=== PATIENT | male | born 1950 | race Caucasian/White ===

== ENCOUNTER 2016-11-11 13:02 | Inpatient (IN) | payer OTHER, SELFPAY ==
[~2016-11-11] VITALS: Ht 180.3 cm; Wt 134.7 kg
[2016-11-11 14:22] LABS: HEMOGLOBIN 15.1 gm/dl (14.0-17.5); RED BLOOD COUNT 4.87 M/UL (4.20-5.50)
[2016-11-11 14:40] LABS: BUN/CREATININE RATIO 18 (0-10)
[2016-11-11 21:33] LABS: BUN/CREATININE RATIO 19 (0-10)
[2016-11-11] MEDS ORDERED: ZESTORETIC 20-1 EAC1 PO (23:33)
[2016-11-11] MEDS ORDERED: NEURONTIN 400400 MG PO (23:34)
[2016-11-11] MEDS ORDERED: ZYRTEC10 MG PO (23:34)
[2016-11-12 06:28] LABS: HEMOGLOBIN 15.3 gm/dl (14.0-17.5); RED BLOOD COUNT 4.79 M/UL (4.20-5.50); WHITE BLOOD COUNT 11.7 K/UL (4.5-11.0)
[2016-11-12 06:57] LABS: BUN/CREATININE RATIO 26 (0-10)
[2016-11-13 05:22] LABS: RED BLOOD COUNT 4.87 M/UL (4.20-5.50); WHITE BLOOD COUNT 14.6 K/UL (4.5-11.0)
[2016-11-13 05:44] LABS: BUN/CREATININE RATIO 30 (0-10)
[2016-11-14 04:29] LABS: HEMOGLOBIN 13.8 gm/dl (14.0-17.5); RED BLOOD COUNT 4.52 M/UL (4.20-5.50); WHITE BLOOD COUNT 12.7 K/UL (4.5-11.0)
[2016-11-14 04:52] LABS: BUN/CREATININE RATIO 28 (0-10)
--- NOTE | 2016-11-15 00:15 | NUR ---
11/14/2013 6455 LENGTHY DISCUSSION ABOUT ELECTRICAL CONDUCTION ABNORMALITY OF A FIB, THE RESULTS OF A FIB ON THE BODY, THE MECHANISM AND REASON FOR THE MALACHI TO BE DONE, THE ABLATION TO BE DONE. PT VERBALIZES "BETTER UNDERSTANDING OF WHAT IS GOING TO HAPPEN TOMORROW"
[2016-11-16] MEDS ORDERED: ELIQUIS5 MG PO (11:04)
[2016-11-16] MEDS ORDERED: HYDROCHLOROTHIA25 MG PO (11:06)
[2016-11-16] MEDS ORDERED: LISINOPRIL10 MG PO (11:07)
[2016-11-16] MEDS ORDERED: LOPRESSOR 25 MG25 MG PO (11:09)
== END 2016-11-16 12:26 | disposition home or self-care (01) | DRG 274 ==
LOC: ER1 13:02 → ZEROF 16:56 → PROG CARE 16:56 → M/S 22:41 → PROG CARE 11-12 01:56
PROVIDERS: Emergency Medicine; ADMIT Internal Medicine
PROC: 02583ZZ Destruction of Conduction Mechanism, Percutaneous Approach (ICD-10-PCS; principal; 2016-11-15)
PROC: 02K83ZZ Map Conduction Mechanism, Percutaneous Approach (ICD-10-PCS; 2016-11-15)
PROC: 4A023FZ Measurement of Cardiac Rhythm, Percutaneous Approach (ICD-10-PCS; 2016-11-15)
PROC: 4A0234Z Measurement of Cardiac Electrical Activity, Percutaneous Approach (ICD-10-PCS; 2016-11-15)
PROC: B246ZZ4 Ultrasonography of Right and Left Heart, Transesophageal (ICD-10-PCS; 2016-11-15)
DX: I48.0 Paroxysmal atrial fibrillation (principal); I50.22 Chronic systolic (congestive) heart failure; Z68.41 Body mass index [BMI] 40.0-44.9, adult; I48.92 Unspecified atrial flutter; I11.0 Hypertensive heart disease with heart failure; E66.01 Morbid (severe) obesity due to excess calories; J44.9 Chronic obstructive pulmonary disease, unspecified; I42.9 Cardiomyopathy, unspecified; I27.2 Other secondary pulmonary hypertension; I08.1 Rheumatic disorders of both mitral and tricuspid valves; I45.9 Conduction disorder, unspecified; D72.829 Elevated white blood cell count, unspecified; G89.29 Other chronic pain; M54.5 Low back pain; Z91.14 Patient's other noncompliance with medication regimen; Z79.899 Other long term (current) drug therapy; Z82.49 Family history of ischemic heart disease and other diseases of the circulatory system
CPT/HCPCS: ECHO; 36415; 71010; 80048; 80053; 80061; 82550; 82553; 82803; 83735; 83874; 83880; 84100; 84132; 84439; 84443; 84481; 84484; 85025; 85027; 85610; 85730; 87040; 93005; 93306; 93312; 93320; 93609; 93622; 94640; 94664; 96361; 96365; 96375; 99291; C1730; C1766; J1200; J1644; J1650; J1940; J1956; J2250; J2405; J2930; J3010; J7030; J7040; Q9963

== ENCOUNTER → 2016-11-24 | Outpatient (CLI) | payer OTHER ==
[~2016-11-24] MED LIST: ELIQUIS5 MG PO; HYDROCHLOROTHIA25 MG PO; LISINOPRIL10 MG PO; LOPRESSOR 25 MG25 MG PO; NEURONTIN 400400 MG PO; ZESTORETIC 20-1 EAC1 PO; ZYRTEC10 MG PO
== END ==
LOC: NM 09:00
DX: R07.9 Chest pain, unspecified (principal)

== ENCOUNTER 2021-10-04 11:51 | Inpatient (IN) | payer OTHER ==
[~2021-10-04] VITALS: Ht 180.3 cm; Wt 136.1 kg
[2021-10-04 13:03] LABS: HEMOGLOBIN 15.3 gm/dl (14.0-17.5); RED BLOOD COUNT 5.13 M/UL (4.20-5.50); WHITE BLOOD COUNT 17.8 K/UL (4.5-11.0)
[2021-10-04] MEDS ORDERED: GABAPENTIN400 MG PO (17:16)
[2021-10-04] MEDS ORDERED: HYDROCHLOROTHIA25 MG PO (17:16)
[2021-10-04] MEDS ORDERED: ZOFRAN 4 MG TAB4 MG PO (17:16)
[2021-10-04] MEDS ORDERED: NAPROXEN500 MG PO (17:17)
[2021-10-04] MEDS ORDERED: MUPIROCIN22 GM TOP (17:17)
[2021-10-04] MEDS ORDERED: LISINOPRIL10 MG PO (17:17)
[2021-10-04] MEDS ORDERED: MONTELUKAST SOD10 MG PO (17:18)
[2021-10-04] MEDS ORDERED: TRAZODONE HCL50 MG PO (17:18)
[2021-10-04] MEDS ORDERED: LINZESS145 MCG PO (17:18)
[2021-10-04] MEDS ORDERED: LEVOCETIRIZINE D5 MG PO (17:18)
[2021-10-04] MEDS ORDERED: PROAIR HFA8.5 GM INH (17:19)
[2021-10-04] MEDS ORDERED: METOPROLOL TART25 MG PO (17:19)
[2021-10-05 03:37] LABS: HEMOGLOBIN 13.9 gm/dl (14.0-17.5); RED BLOOD COUNT 4.72 M/UL (4.20-5.50); WHITE BLOOD COUNT 16.9 K/UL (4.5-11.0)
[2021-10-05 03:42] LABS: BUN/CREATININE RATIO 29 (0-10)
--- NOTE | 2021-10-05 17:13 | NUR ---
PATIENT HAD 3 MRI VIEWS ORDERED. PATIENT REFUSED TO LAY FLAT STATED HE COULDN'T ESPECIALLY ON A HARD SURFACE. HOTEL CASINO FLOORPERSON ALSO STATED HE DIDN'T THINK THE PATIENT WOULD FIT IN THE MRI MACHINE. HOSPITALIST NOTIFIED WELL ORTHO PA. ORTHO PA SUGGESTED HOSPITALIST CONTACT DR. MERIDA IF HE WAS INTERESTED IN PERSUING FURTHER FOR IMAGING OR TREATMENT SUGGESTIONS. WILL CONTINUE TO MONITOR.
[2021-10-06 16:34] LABS: HEMOGLOBIN 12.6 gm/dl (14.0-17.5); RED BLOOD COUNT 4.43 M/UL (4.20-5.50)
[2021-10-06 16:35] LABS: WHITE BLOOD COUNT 10.6 K/UL (4.5-11.0)
[2021-10-06 17:09] LABS: BUN/CREATININE RATIO 15 (0-10)
[2021-10-07 03:37] LABS: HEMOGLOBIN 12.8 gm/dl (14.0-17.5); RED BLOOD COUNT 4.49 M/UL (4.20-5.50); WHITE BLOOD COUNT 11.2 K/UL (4.5-11.0)
[2021-10-07 04:33] LABS: BUN/CREATININE RATIO 14 (0-10)
[2021-10-08 03:13] LABS: HEMOGLOBIN 13.5 gm/dl (14.0-17.5); RED BLOOD COUNT 4.76 M/UL (4.20-5.50); WHITE BLOOD COUNT 10.2 K/UL (4.5-11.0)
[2021-10-08 03:34] LABS: BUN/CREATININE RATIO 15 (0-10)
[2021-10-09 04:27] LABS: HEMOGLOBIN 12.3 gm/dl (14.0-17.5); RED BLOOD COUNT 4.35 M/UL (4.20-5.50); WHITE BLOOD COUNT 10.3 K/UL (4.5-11.0)
[2021-10-09 04:35] LABS: BUN/CREATININE RATIO 23 (0-10)
[2021-10-10 03:44] LABS: HEMOGLOBIN 12.5 gm/dl (14.0-17.5); RED BLOOD COUNT 4.44 M/UL (4.20-5.50); WHITE BLOOD COUNT 11.2 K/UL (4.5-11.0)
[2021-10-10 04:01] LABS: BUN/CREATININE RATIO 25 (0-10)
[2021-10-12 10:44] LABS: RED BLOOD COUNT 4.56 M/UL (4.20-5.50); WHITE BLOOD COUNT 9.7 K/UL (4.5-11.0)
[2021-10-12 11:21] LABS: BUN/CREATININE RATIO 29 (0-10)
[2021-10-13 06:38] LABS: HEMOGLOBIN 12.2 gm/dl (14.0-17.5); RED BLOOD COUNT 4.42 M/UL (4.20-5.50); WHITE BLOOD COUNT 10.2 K/UL (4.5-11.0)
[2021-10-13 06:55] LABS: BUN/CREATININE RATIO 25 (0-10)
--- NOTE | 2021-10-13 14:19 | NUR ---
CALLED PROVIDER PER PATIENT REQUEST. PATIENT STATES "MY RIGHT EAR ISN'T ACTING RIGHT. IT'S ALMOST AN EAR ACHE, BUT NOT QUITE." PROVIDER SAYS HE IS ALREADY WORKING WITH PHARMACY FOR SOME EAR DROPS FOR PATIENT BASED ON AN EARLIER CONVERSATION HE HAD WITH GABRIELA. WILL CONTINUE TO MONITOR.
[2021-10-14 06:21] LABS: BUN/CREATININE RATIO 26 (0-10)
[2021-10-14 06:37] LABS: HEMOGLOBIN 13.4 gm/dl (14.0-17.5); RED BLOOD COUNT 4.6 M/UL (4.20-5.50); WHITE BLOOD COUNT 9.8 K/UL (4.5-11.0)
[2021-10-15 04:25] LABS: HEMOGLOBIN 13.1 gm/dl (14.0-17.5); RED BLOOD COUNT 4.51 M/UL (4.20-5.50)
[2021-10-15 04:30] LABS: WHITE BLOOD COUNT 12.7 K/UL (4.5-11.0)
[2021-10-15 04:42] LABS: BUN/CREATININE RATIO 17 (0-10)
[2021-10-18 03:22] LABS: HEMOGLOBIN 12.9 gm/dl (14.0-17.5); RED BLOOD COUNT 4.53 M/UL (4.20-5.50); WHITE BLOOD COUNT 13.4 K/UL (4.5-11.0)
[2021-10-18 03:36] LABS: BUN/CREATININE RATIO 20 (0-10)
[2021-10-18] MEDS ORDERED: PROTONIX 40 MG40 M1 PO (12:00)
[2021-10-18] MEDS ORDERED: THERAGRAN M TAB1 EA PO (12:00)
[2021-10-18] MEDS ORDERED: FLORANEX GRANU1 EACH PO (12:00)
[2021-10-18] MEDS ORDERED: NYSTATIN60 GM TOP (12:00)
[2021-10-18] MEDS ORDERED: SODIUM CHLORIDE1 G1 PO (12:00)
[2021-10-18] MEDS ORDERED: GABAPENTIN400 MG PO (12:01)
== END 2021-10-18 16:50 | DRG 872 ==
LOC: ER1 11:51 → MED SURG 4 17:03 → CDU 17:03 → MED SURG 4 19:20
PROVIDERS: Family Medicine; Internal Medicine; Nurse Practitioner; ADMIT Internal Medicine
PROC: 3E03329 Introduction of Other Anti-infective into Peripheral Vein, Percutaneous Approach (ICD-10-PCS; 2021-10-04)
PROC: B24BZZZ Ultrasonography of Heart with Aorta (ICD-10-PCS; principal; 2021-10-06)
DX: A41.9 Sepsis, unspecified organism (principal); Z68.41 Body mass index [BMI] 40.0-44.9, adult; E22.2 Syndrome of inappropriate secretion of antidiuretic hormone; L03.116 Cellulitis of left lower limb; L03.115 Cellulitis of right lower limb; N17.9 Acute kidney failure, unspecified; E87.2 Acidosis; I50.22 Chronic systolic (congestive) heart failure; L89.312 Pressure ulcer of right buttock, stage 2; L89.152 Pressure ulcer of sacral region, stage 2; M51.36 Other intervertebral disc degeneration, lumbar region; K52.9 Noninfective gastroenteritis and colitis, unspecified; E86.0 Dehydration; R53.81 Other malaise; I71.9 Aortic aneurysm of unspecified site, without rupture; D63.8 Anemia in other chronic diseases classified elsewhere; I35.1 Nonrheumatic aortic (valve) insufficiency; I11.0 Hypertensive heart disease with heart failure; R65.20 Severe sepsis without septic shock; I48.91 Unspecified atrial fibrillation; G89.29 Other chronic pain; M48.02 Spinal stenosis, cervical region; W18.30XA Fall on same level, unspecified, initial encounter; M50.30 Other cervical disc degeneration, unspecified cervical region; E66.01 Morbid (severe) obesity due to excess calories; Z74.01 Bed confinement status; Z79.01 Long term (current) use of anticoagulants; Y92.002 Bathroom of unspecified non-institutional (private) residence as the place of occurrence of the external cause; Z82.49 Family history of ischemic heart disease and other diseases of the circulatory system
CPT/HCPCS: ECHO; 0240U; 36415; 71045; 72125; 72131; 80048; 80053; 80202; 81001; 82436; 82550; 82553; 82570; 83036; 83605; 83880; 84133; 84156; 84300; 84439; 84443; 84484; 85025; 85027; 86140; 87040; 87086; 93005; 93306; 93970; 94640; 94664; 94760; 96374; 96375; 97110; 97110-GP-CQ; 97161; 97165; 97530; 97530-GP-CQ; 99285; J0696; J1650; J2405; J3370; J7030; J7070